=== PATIENT | male | born 1985 | race Caucasian/White ===

== ENCOUNTER 2020-04-26 17:35 | Emergency (ER) | payer SELFPAY ==
[~2020-04-26] VITALS: Ht 182.9 cm; Wt 63.5 kg
[2020-04-26 17:37] VITALS: BP 112/82
== END 2020-04-26 21:30 | disposition left against medical advice (07) ==
LOC: EDBD 17:35 → ER 17:35
DX: R10.9 Unspecified abdominal pain (principal); Z53.21 Procedure and treatment not carried out due to patient leaving prior to being seen by health care provider

== ENCOUNTER 2021-07-22 17:16 | Emergency (ER) | payer BC, OTHER ==
[~2021-07-22] VITALS: Ht 185.4 cm; Wt 81.6 kg
[2021-07-22] MEDS ORDERED: LORazepam 2MG/ML-1ML VIAL ONE (17:48)
[2021-07-22 20:24] LABS: Urine WBC None Seen /hpf (0 - 3)
[2021-07-22 20:50] LABS: Urine Bacteria NONE SEEN /hpf (None Seen); Urine Blood Negative /uL (Negative); Urine Specific Gravity 1.027 (1.001-1.035)
[2021-07-22 20:51] LABS: Basophils # (auto) 0.1 10 ^3/uL (0-0.2); Eosinophils # (auto) 0.1 10 ^3/uL (0-0.8); Hematocrit 40.1 % (41.0-53.0); Hemoglobin 14.1 g/dL (13.5-17.5); Lymphocytes % (auto) 51.6 % (10.0-50.0); Mean Corpuscular Hemoglobin 31.8 pg (28.0-32.0); Mean Corpuscular Volume 90.7 fL (80.0-100.0); Monocytes # (auto) 0.7 10 ^3/uL (0-1.3); Monocytes % (auto) 8.6 % (0.0-12.0); Neutrophils % (auto) 37.8 % (37.0-80.0); Nucleated Red Blood Cells % 0.2 %; Red Blood Cells 4.42 10^6/uL (4.5-5.90); White Blood Cell 7.8 10^3/uL (4.4-10.8)
[2021-07-22 20:52] LABS: Albumin 3.8 g/dL (3.4-5.0); Calcium 8.4 mg/dL (8.5-10.1)
[2021-07-22 20:55] LABS: BUN/Creatinine Ratio 16.8; Bilirubin, Total 0.3 mg/dL (0.2-1.0)
[2021-07-22 20:58] LABS: Amphetamine Screen, Urine NEGATIVE (NEGATIVE); Barbiturate Scree,Urine NEGATIVE (NEGATIVE); Benzodiazephine Screen, Urine POSITIVE (NEGATIVE); Cannabinoid Screen, Urine NEGATIVE (NEGATIVE); Cocaine Screen, Urine NEGATIVE (NEGATIVE); Opiate Scree,Urine NEGATIVE (NEGATIVE); Phencyclidine Screen, Urine NEGATIVE (NEGATIVE)
[2021-07-22 23:14] VITALS: BP 106/72
== END 2021-07-22 23:20 | disposition home or self-care (01) ==
LOC: ER 17:16 → EDBD 17:16 → ER 23:19
DX: R56.9 Unspecified convulsions (principal); R41.82 Altered mental status, unspecified
CPT/HCPCS: 36415; 70450; 80053; 80307; 81001; 85025; 93005; 96365; 99285; J1953; J2060; J7060